=== PATIENT | female | born 1955 | race Hispanic/Latino ===

== ENCOUNTER 2017-03-18 23:38 | Emergency (ER) | payer OTHER ==
[~2017-03-18] VITALS: Ht 152.4 cm; Wt 68.1 kg
[2017-03-19] MEDS ORDERED: NAPROSYN500 MG PO (02:03)
[2017-03-19 02:13] VITALS: BP 151/90
== END 2017-03-19 02:14 | disposition home or self-care (01) ==
LOC: EME 23:38
DX: S00.83XA Contusion of other part of head, initial encounter (principal); V49.9XXA Car occupant (driver) (passenger) injured in unspecified traffic accident, initial encounter; R07.89 Other chest pain
CPT/HCPCS: 70450; 70486; 71250; 74176; 99281; 99284